=== PATIENT | male | born 1970 | race Caucasian/White ===

== ENCOUNTER 2017-08-17 16:19 | Emergency (ER) | payer SELFPAY | END 2017-08-17 16:27 | LOC: ED 16:20 | DX: Z02.9 Encounter for administrative examinations, unspecified (principal) ==

== ENCOUNTER 2020-08-14 19:58 | Emergency (ER) | payer SELFPAY ==
[~2020-08-14] VITALS: Ht 170.2 cm; Wt 76.7 kg
--- NOTE | 2020-08-14 22:40 | NUR ---
RN at bedside. Pt. sleeping, snoring.
--- NOTE | 2020-08-14 23:40 | NUR ---
Pt sleeping, snoring, awakens to RN asking pt to open eyes but easily but goes right back to sleep.
--- NOTE | 2020-08-15 00:26 | NUR ---
Pt sleeping, snoring, 02 sats dropped to 86% as pt. had removed nasal cannula. Nasal cannula reapplyed at 3L and 02 sats back up to 92%
[2020-08-15 01:48] VITALS: BP 119/77
--- NOTE | 2020-08-15 01:59 | NUR ---
Road tested pt- passed.
== END 2020-08-15 02:02 | disposition home or self-care (01) ==
LOC: ED 21:17
DX: M25.512 Pain in left shoulder (principal); F10.120 Alcohol abuse with intoxication, uncomplicated; M54.2 Cervicalgia; J34.89 Other specified disorders of nose and nasal sinuses; Y90.0 Blood alcohol level of less than 20 mg/100 ml
CPT/HCPCS: 99281